=== PATIENT | female | born 1990 | race Caucasian/White ===

== ENCOUNTER 2016-09-01 23:43 | Inpatient (IN) | payer BC, OTHER ==
[~2016-09-01 23:43] MED LIST: METH2.5 IM; ULTR50TA PO
[2016-09-01 23:45] VITALS: BP 136/86; PULSE 68; RESP 16; TEMP 98; O2SAT 95
[2016-09-02] VITALS (12 sets, daily range): BP systolic 111–139; BP diastolic 63–93; PULSE 68–110; RESP 15–21; TEMP 95.9–98.2; O2SAT 95–100
[2016-09-02] MEDS ORDERED: SODIUM CHLORIDE 0.9% FLUSH 5 ML FLUSH IVF PRN
[2016-09-02 00:24] LABS: AUTOMATED NEUTROPHIL # 10.7 TH/MM3 (1.8-7.7); BASOPHIL # 0.1 TH/MM3 (0-0.2); BASOPHIL % 0.4 % (0.0-2.0); EOSINOPHIL # 0.1 TH/MM3 (0-0.4); EOSINOPHIL % 0.6 % (0.0-4.0); HEMATOCRIT 41.8 % (35.0-46.0); HEMO FLAGS DIFF FINAL; LYMPH % 28.2 % (9.0-44.0); LYMPHOCYTE # 4.7 TH/MM3 (1.0-4.8); MEAN CELL VOLUME 97.5 FL (80.0-100.0); MEAN CORPUSCULAR HEMOGLOBIN 34.1 PG (27.0-34.0); MEAN CORPUSCULAR HGB CONC 34.9 % (32.0-36.0); MONO % 6.3 % (0.0-8.0); NEUT % 64.5 % (16.0-70.0); PLATELET COUNT 256 TH/MM3 (150-450); RED BLOOD COUNT 4.28 MIL/MM3 (4.00-5.30); RED CELL DISTRIBUTION WIDTH 13.5 % (11.6-17.2); WHITE BLOOD COUNT 16.6 TH/MM3 (4.0-11.0)
[2016-09-02 00:38] LABS: ALKALINE PHOSPHATASE 51 U/L (45-117); TOTAL BILIRUBIN ADULT 0.2 MG/DL (0.2-1.0)
--- NOTE | 2016-09-02 00:41 | PD ---
HPI Chief Complaint: OD/ Ingestion Time Seen by Provider: 23:55 Travel History International Travel<30 days: No Contact w/Intl Traveler<30days: No Traveled to known affect area: No History of Present Illness HPI This is a 25-year-old female who presents to the emergency department having had an intentional overdose of Vicodin. Patient had a 90 tablets bottle of Vicodin and it's unclear how much she took that her friends found her sleepy with a bottle of pills in her hand. The patient reports that she took these tablets to try to kill her self. She's been going through a hard breakup and she's been very emotional. Her friends report that she has done this in the past. She also reports that she drank a lot of alcohol this evening. PFSH Past Medical History Arthritis: Yes (RA) Chemotherapy: Yes Diminished Hearing: No ?: Not Past Surgical History Surgical History: No Previous Surgery Social History Alcohol Use: Yes Tobacco Use: Yes (1PPD) Substance Use: Yes (DRINKS 6-7 BEERS ON WEEKENDS) Allergies-Medications (Allergen,Severity, Reaction): Coded Allergies: Amoxicillin (Verified Allergy, Severe, Rash, 02/17/16) Reported Meds & Prescriptions Reported Meds & Active Scripts Active Reported Hydrocodone-Acetaminophen 5-325 mg Tab 1 Tab PO Q4H PRN Methotrexate 2.5 Mg Tab 2.5 Mg PO Q7D Review of Systems Except as stated in HPI: all other systems reviewed are Neg Physical Exam Narrative GENERAL: Tearful, somnolent but awakens to answer questions. SKIN: Warm and dry. HEAD: Atraumatic. Normocephalic. EYES: Pupils are pinpoint, equal and reactive. No injection or drainage. ENT: Moist mucous membranes NECK: Trachea midline. CARDIOVASCULAR: Regular rate and rhythm. No murmur appreciated. RESPIRATORY: Clear to auscultation. Breath sounds equal bilaterally. GASTROINTESTINAL: Abdomen soft, non-tender, nondistended. MUSCULOSKELETAL: No obvious deformities. NEUROLOGICAL: Awake and alert. No obvious cranial nerve deficits. Moving all extremities. PSYCHIATRIC: Appropriate mood and affect; insight and judgment normal. Data Data Last Documented VS Vital Signs Date Time Temp Pulse Resp B/P Pulse Ox O2 Delivery O2 Flow Rate FiO2 09/02/16 02:23 80 16 128/63 97 09/01/16 23:45 98.0 Room Air Orders Complete Blood Count With Diff (3/12/17 23:55) Comprehensive Metabolic Panel (09/01/16 23:55) Urinalysis - C+S If Indicated (09/01/16 23:55) Iv Access Insert/Monitor (09/01/16 23:55) Ecg Monitoring (09/01/16 23:55) Oximetry (09/01/16 23:55) Sodium Chloride 0.9% Flush (Ns Flush) (09/02/16 00:00) Drug Screen, Random Urine (09/01/16 23:55) Alcohol (Ethanol) (09/01/16 23:55) Salicylates (Aspirin) (09/01/16 23:55) Tylenol (Acetaminophen) (09/01/16 23:55) Ed Urine Pregnancytest Poc (09/01/16 23:55) Electrocardiogram (09/01/16 ) Acetylcysteine 20% Liq (Mucomyst 20% Liq (09/02/16 01:15) Lorazepam Inj (Ativan Inj) (09/02/16 01:15) Tylenol (Acetaminophen) (09/02/16 05:08) Acetylcysteine Inj (Acetadote Inj) (09/02/16 06:00) Acetylcysteine Inj (Acetadote Inj) (09/02/16 06:00) Acetylcysteine Inj (Acetadote Inj) (09/02/16 06:00) Prothrombin Time / Inr (Pt) (09/02/16 05:51) Act Partial Throm Time (Ptt) (09/02/16 05:51) Salicylates (Aspirin) (09/02/16 06:04) Labs Laboratory Tests Test 09/02/16 09/02/16 09/02/16 00:02 00:40 05:20 White Blood Count 16.6 TH/MM3 Red Blood Count 4.28 MIL/MM3 Hemoglobin 14.6 GM/DL Hematocrit 41.8 % Mean Corpuscular Volume 97.5 FL Mean Corpuscular Hemoglobin 34.1 PG Mean Corpuscular Hemoglobin 34.9 % Concent Red Cell Distribution Width 13.5 % Platelet Count 256 TH/MM3 Mean Platelet Volume 8.7 FL Neutrophils (%) (Auto) 64.5 % Lymphocytes (%) (Auto) 28.2 % Monocytes (%) (Auto) 6.3 % Eosinophils (%) (Auto) 0.6 % Basophils (%) (Auto) 0.4 % Neutrophils # (Auto) 10.7 TH/MM3 Lymphocytes # (Auto) 4.7 TH/MM3 Monocytes # (Auto) 1.0 TH/MM3 Eosinophils # (Auto) 0.1 TH/MM3 Basophils # (Auto) 0.1 TH/MM3 CBC Comment DIFF FINAL Differential Comment Sodium Level 144 MEQ/L Potassium Level 4.0 MEQ/L Chloride Level 110 MEQ/L Carbon Dioxide Level 23.8 MEQ/L Anion Gap 10 MEQ/L Blood Urea Nitrogen 8 MG/DL Creatinine 0.74 MG/DL Estimat Glomerular Filtration 96 ML/MIN Rate Random Glucose 140 MG/DL Calcium Level 8.1 MG/DL Total Bilirubin 0.2 MG/DL Aspartate Amino Transf 31 U/L (AST/SGOT) Alanine Aminotransferase 41 U/L (ALT/SGPT) Alkaline Phosphatase 51 U/L Total Protein 7.2 GM/DL Albumin 4.2 GM/DL Salicylates Level 4.0 MG/DL Acetaminophen Level 145.8 MCG/ML 116.7 MCG/ML Ethyl Alcohol Level 279 MG/DL Urine Color LIGHT-YELLOW Urine Turbidity HAZY Urine pH 5.0 Urine Specific [place] 1.008 Urine Protein NEG mg/dL Urine Glucose (UA) NEG mg/dL Urine Ketones NEG mg/dL Urine Occult Blood NEG Urine Nitrite NEG Urine Bilirubin NEG Urine Urobilinogen LESS THAN 2.0 MG/DL Urine Leukocyte Esterase SMALL Urine RBC 3 /hpf Urine WBC 7 /hpf Urine Squamous Epithelial 24 /hpf Cells Urine Amorphous Sediment RARE Urine Bacteria OCC /hpf Urine Hyaline Casts 4 /lpf Urine Mucus FEW /lpf Microscopic Urinalysis Comment CULT NOT INDICATED Urine Opiates Screen POS Urine Barbiturates Screen NEG Urine Amphetamines Screen NEG Urine Benzodiazepines Screen NEG Urine Cocaine Screen NEG Urine Cannabinoids Screen POS MDM Medical Decision Making Medical Screen Exam Complete: Yes Emergency Medical Condition: Yes Interpretation(s) Afebrile, no tachycardia, normotensive Leukocytosis Electrolytes within normal Some white blood cells in the urine but large amount of squamous epithelial cells Alcohol is 279 Acetaminophen is 145 initially and then 116@8 hours Drug screen is positive for opiates and cannabinoid Differential Diagnosis Opiate overdose, acetaminophen overdose, electrolyte abnormality, arrhythmia, alcohol intoxication Narrative Course This is a 25-year-old female who presents to the emergency Department having overdosed on Lortab. She was placed on a monitor and an IV was established. Labs are obtained which demonstrate no acetaminophen of 145. Alcohol level was 279. Patient was somewhat agitated so she was given Ativan. She was placed under a [place] act. Patient's ingestion was around 10 PM. I rechecked her acetaminophen 4 hours after her initial level and it was 116 which is clearly in the treatment range. She was started on N-acetylcysteine. She will be admitted for continued close management. Critical Care Narrative Aggregate critical care time was 40 minutes. Time to perform other separately billable procedures was not included in the critical care time. My time did not include minutes spent treating any other patients simultaneously or on activities that did not directly contribute to the patient's treatment. The services I provided to this patient were to treat and/or prevent clinically significant deterioration that could result in: disability, I provided critical care services requiring my management, as noted below: Chart data review, documentation time, medication orders and management, vital sign assessments/reviewing monitor data, ordering and reviewing lab tests, ordering and interpreting/reviewing x-rays and diagnostic studies, care of the patient and discussion of the patient with the admitting physicians. S Diagnosis Primary Impression: Acetaminophen overdose Qualified Code: T39.1X2A - Acetaminophen overdose, intentional self-harm, initial encounter Admitting Information Admitting Physician Requests: Admit Randi Da Silva MD Sep 02, 2016 00:41
[2016-09-02 00:43] LABS: ACETAMINOPHEN 145.8 MCG/ML (10.0-30.0); ALT (GPT) 41 U/L (10-53); ANION GAP 10 MEQ/L (5-15); AST (GOT) 31 U/L (15-37); BICARBONATE 23.8 MEQ/L (21.0-32.0); BLOOD UREA NITROGEN 8 MG/DL (7-18); CHLORIDE 110 MEQ/L (98-107); GLOMERULAR FILTRATION RATE 96 ML/MIN (>89); SODIUM (NA) 144 MEQ/L (136-145)
[2016-09-02 00:51] LABS: BACTERIA, URINE OCC /hpf; BLOOD, URINE NEG (NEG); COMMENT (UR) CULT NOT INDICATED; CULTURE IF INDICATED CULT NOT INDICATED; GLUCOSE,URINE NEG (NEG); HYALINE CAST, URINE 4 /lpf (RARE); KETONE, URINE NEG (NEG); MUCUS URINE FEW /lpf (OCC); NITRITE,URINE NEG (NEG); SQUAMOUS EPITHELIAL CELL URINE 24 /hpf (0-5); URINE COLOR LIGHT-YELLOW (YELLW/STRAW)
[2016-09-02 00:56] LABS: AMPHETAMINE, URINE NEG (NEG); BARBITURATES, URINE NEG (NEG); COCAINE, URINE NEG (NEG)
[2016-09-02] MEDS ORDERED: ACETYLCYSTEINE 20% 6,000 MG/30 ML ORAL SOLN VIAL PO ONE (01:15)
[2016-09-02] MEDS ORDERED: LORazepam 2 MG/ML VIAL IV PUSH ONE (01:15)
[2016-09-02] MEDS ORDERED: HYDR-3516 PO (02:59)
[2016-09-02] MEDS ORDERED: METH2.5T PO (02:59)
[2016-09-02] MEDS ORDERED: DEXTROSE 5% IV ONE ×6 (06:00)
[2016-09-02] MEDS ORDERED: WATE IV ONE ×4 (06:00)
[2016-09-02] MEDS ORDERED: WATER IV ONE ×2 (06:00)
[2016-09-02] MEDS ORDERED: ACETYLCYSTEINE IV ONE ×6 (06:00)
[2016-09-02] MEDS ORDERED: NALOXONE HCL 0.4 MG/ML AMP IV PRN (06:30)
[2016-09-02] MEDS: SODIUM CHLOR 0.9% 1000 ML INJ 1,000 ML IV SCH ×2 (06:30→08:43)
[2016-09-02] MEDS ORDERED: MAGNESIUM HYDROXIDE SUSP 30 ML CUP PO PRN (06:30)
[2016-09-02 06:34] LABS: PROTHROMBIN TIME - PATIENT 10.5 SEC (9.8-11.6)
[2016-09-02] MEDS: ONDANSETRON HCL 4 MG/2 ML VIAL IVP PRN (08:40)
--- NOTE | 2016-09-02 10:01 | HHI.HP ---
[facility] Service [facility] Primary Care Physician No Primary Care Physician Admission Diagnosis acetaminophen overdose Diagnoses: Chief Complaint: Lortab overdose Travel History International Travel<30 Days: No Contact w/Intl Traveler <30 Da: No Traveled to Known Affected Are: No History of Present Illness 25 y/o F with hx of depression and RA who presented with overdose. Patient was stated for the past month she was overwhelmed so she wanted to harm herself. She would not go into detail. patient stated she took all her Lortabs which was about 40 tablets. She stated that she wanted to end her life. Patient stated she has depression and is on prozac that is prescribed by her Religious Healer. She state that she drinks alcohol about once every other week. Smokes marijuana every day for about 1 year. Patient stated on her mother side they have depression. This was the first attempt in suicide. Patient asking to have sprite. She stated she vomit a couple times this morning but denied any nausea now. Denied any abdominal pain. Sitter at bedside. Review of Systems Constitutional: DENIES: Diaphoretic episodes, Fatigue, Fever, Weight gain, Weight loss, Chills, Dizziness, Change in appetite, Night Sweats Endocrine: DENIES: Abnorml menstrual pattern, Heat/cold intolerance, Polydipsia , Polyuria, Polyphagia Eyes: DENIES: Blurred vision, Diplopia, Eye inflammation, Eye pain, Vision loss , Photosensitivity, Double Vision Ears, nose, mouth, throat: DENIES: Tinnitus, Hearing loss, Vertigo, Nasal discharge, Oral lesions, Throat pain, Hoarseness, Ear Pain, Running Nose, Epistaxis, Sinus Pain, Toothache, Odynophagia Respiratory: DENIES: Apneas, Cough, Snoring, Wheezing, Hemoptysis, Sputum production, Shortness of breath Cardiovascular: DENIES: Chest pain, Palpitations, Syncope, Dyspnea on Exertion , PND, Lower Extremity Edema, Orthopnea, Claudication Gastrointestinal: DENIES: Abdominal pain, Black stools, Bloody stools, Constipation, Diarrhea, Nausea, Vomiting, Difficulty Swallowing, Anorexia Genitourinary: DENIES: Abnormal vaginal bleeding, Dysmenorrhea, Dyspareunia, Sexual dysfunction, Urinary frequency, Urinary incontinence, Urgency, Hematuria , Dysuria, Nocturia, Vaginal discharge Musculoskeletal: DENIES: Joint pain, Muscle aches, Stiffness, Joint Swelling, Back pain, Neck pain Integumentary: DENIES: Abnormal pigmentation, Pruritus, Rash, Nail changes, Breast masses, Breast skin changes, Nipple discharge Hematologic/lymphatic: DENIES: Bruising, Lymphadenopathy Immunologic/allergic: DENIES: Eczema, Urticaria Neurologic: DENIES: Abnormal gait, Headache, Localized weakness, Paresthesias, Seizures, Speech Problems, Tremor, Poor Balance Psychiatric: COMPLAINS OF: Depression, Suicidal Ideation, DENIES: Anxiety, Confusion, Mood changes, Hallucinations, Agitation, Homicidal Ideation, Delusions Past Family Social History Past Medical History Depression RA Past Surgical History tonsillectomy Reported Medications Hydrocodone-Acetaminophen 5-325 mg Tab 1 Tab PO Q4H PRN Methotrexate 2.5 Mg Tab 2.5 Mg PO Q7D prozac Allergies: Coded Allergies: Amoxicillin (Verified Allergy, Severe, Rash, 02/17/16) Active Ordered Medications Current Medications IV Flush (NS Flush) 2 ml UNSCH PRN IVF FLUSH AFTER USING IV ACCESS; Start 09/02 at 00:00 Acetylcysteine (Mucomyst 20% Liq) 7,550 mg ONCE ONCE PO ; Start 09/02/16 at 01: 15; Stop 09/02/16 at 05:51; Status DC Lorazepam 1 mg 1 mg ONCE ONCE IV PUSH Last administered on 09/02/16 05:21; Start 09/02/16 at 01:15; Stop 09/02/16 at 01:16; Status DC Acetylcysteine 8100 mg/Dextrose 240.5 ml @ 200 mls/hr ONCE ONCE IV Last administered on 09/02/16 06:22; Start 09/02/16 at 06:00; Stop 09/02/16 at 07:12 ; Status DC Acetylcysteine 2700 mg/Dextrose 513.5 ml @ 125 mls/hr ONCE ONCE IV Last administered on 09/02/16 06:00; Start 09/02/16 at 06:00; Stop 09/02/16 at 10:06 ; Status DC Acetylcysteine/ Dextrose (Acetadote Inj/ D5W 1000 ml Inj) 1,027 ml @ 62.5 mls/ hr ONCE ONCE IV ; Start 09/02/16 at 06:00; Stop 09/02/16 at 22:25 Ondansetron HCl (Zofran Inj) 4 mg Q6H PRN IVP NAUSEA OR VOMITING Last administered on 09/02/16 08:40; Start 09/02/16 at 06:30 Magnesium Hydroxide (Milk Of Magnnarinder Liq) 30 ml Q12H PRN PO CONSTIPATION; Start 09/02/16 at 06:30 Naloxone HCl 0.4 mg 0.4 mg UNSCH PRN IV SEE LABEL COMMENTS; Start 09/02/16 at 06:30 Sodium Chloride (NS 1000 ml Inj) 1,000 ml @ 84 mls/hr [id number] IV Last administered on 09/02/16 08:43; Start 09/02/16 at 06:30 Family History Patient stated family is healthy. Admits her mother side of family having depression. Social History patient smokes 1PPD of tobacco. drinks alcohol every other week. smokes marijuana every day for the past year. Physical Exam Vital Signs Vital Signs Date Time Temp Pulse Resp B/P Pulse Ox O2 Delivery O2 Flow Rate FiO2 09/02/16 08:24 97.3 87 19 139/93 98 09/02/16 07:35 102 18 118/67 100 Room Air 09/02/16 06:20 90 16 111/79 98 09/02/16 02:23 80 16 128/63 97 09/02/16 00:12 16 100 09/02/16 00:07 110 18 96 09/02/16 00:04 110 18 128/76 95 09/01/16 23:45 98.0 68 16 136/86 95 Room Air Physical Exam GENERAL: This is a well-nourished, well-developed patient, in no apparent distress but is very tearful. SKIN: No rashes, ecchymoses or lesions. Cool and dry. multiple tattoos on body. HEAD: Atraumatic. Normocephalic. No temporal or scalp tenderness. EYES: Pupils equal round and reactive. Extraocular motions intact. No scleral icterus. No injection or drainage. ENT: Nose without bleeding, purulent drainage or septal hematoma. Throat without erythema, tonsillar hypertrophy or exudate. Uvula midline. Airway patent. NECK: Trachea midline. No JVD or lymphadenopathy. Supple, nontender, no meningeal signs. CARDIOVASCULAR: Regular rate and rhythm without murmurs, gallops, or rubs. RESPIRATORY: Clear to auscultation. Breath sounds equal bilaterally. No wheezes , rales, or rhonchi. GASTROINTESTINAL: Abdomen soft, non-tender, nondistended. No hepato-splenomegaly , or palpable masses. No guarding. MUSCULOSKELETAL: Extremities without clubbing, cyanosis, or edema. No joint tenderness, effusion, or edema noted. No calf tenderness. Negative Homans sign bilaterally. NEUROLOGICAL: Awake and alert. Cranial nerves II through XII intact. Motor and sensory grossly within normal limits. Five out of 5 muscle strength in all muscle groups. Normal speech. Laboratory Laboratory Tests Test 09/02/16 09/02/16 09/02/16 09/02/16 00:02 00:40 05:20 06:10 White Blood Count 16.6 Red Blood Count 4.28 Hemoglobin 14.6 Hematocrit 41.8 Mean Corpuscular Volume 97.5 Mean Corpuscular Hemoglobin 34.1 Mean Corpuscular Hemoglobin 34.9 Concent Red Cell Distribution Width 13.5 Platelet Count 256 Mean Platelet Volume 8.7 Neutrophils (%) (Auto) 64.5 Lymphocytes (%) (Auto) 28.2 Monocytes (%) (Auto) 6.3 Eosinophils (%) (Auto) 0.6 Basophils (%) (Auto) 0.4 Neutrophils # (Auto) 10.7 Lymphocytes # (Auto) 4.7 Monocytes # (Auto) 1.0 Eosinophils # (Auto) 0.1 Basophils # (Auto) 0.1 CBC Comment DIFF FINAL Differential Comment Sodium Level 144 Potassium Level 4.0 Chloride Level 110 Carbon Dioxide Level 23.8 Anion Gap 10 Blood Urea Nitrogen 8 Creatinine 0.74 Estimat Glomerular Filtration 96 Rate Random Glucose 140 Calcium Level 8.1 Total Bilirubin 0.2 Aspartate Amino Transf 31 (AST/SGOT) Alanine Aminotransferase 41 (ALT/SGPT) Alkaline Phosphatase 51 Total Protein 7.2 Albumin 4.2 Salicylates Level 4.0 3.0 Acetaminophen Level 145.8 116.7 Ethyl Alcohol Level 279 Urine Color LIGHT-YELLOW Urine Turbidity HAZY Urine pH 5.0 Urine Specific [place] 1.008 Urine Protein NEG Urine Glucose (UA) NEG Urine Ketones NEG Urine Occult Blood NEG Urine Nitrite NEG Urine Bilirubin NEG Urine Urobilinogen LESS THAN 2.0 Urine Leukocyte Esterase SMALL Urine RBC 3 Urine WBC 7 Urine Squamous Epithelial 24 Cells Urine Amorphous Sediment RARE Urine Bacteria OCC Urine Hyaline Casts 4 Urine Mucus FEW Microscopic Urinalysis Comment CULT NOT INDICATED Urine Opiates Screen POS Urine Barbiturates Screen NEG Urine Amphetamines Screen NEG Urine Benzodiazepines Screen NEG Urine Cocaine Screen NEG Urine Cannabinoids Screen POS Prothrombin Time 10.5 Prothromb Time International 1.0 Ratio Activated Partial 25.0 Thromboplast Time Result Diagram: 09/02/16 0002 09/02/16 0002 Assessment and Plan Assessment and Plan 25 y/o with Depression and RA Suicide Attempt by acetaminophen overdose -patient already on Mucomyst protocol. -Tylenol trending down. -LFTs normal will recheck tomorrow. -continue with Sitter and suicidal precautions. -pending Psychiatrist consult. Depression -patient was on Prozac given by her Religious Healer. -psych consulted. RA -meds restarted. Leukocytosis -most likely due to overdose. -no signs of infections. -continue to monitor. DVT prophylaxis -low risk none indicated. Code Status full Discussed Condition With patient Physician Certification 2 Midnight Certification Type: Admission for Inpatient Services Order for Inpatient Services The services are ordered in accordance with Medicare regulations or non- Medicare payer requirements, as applicable. In the case of services not specified as inpatient-only, they are appropriately provided as inpatient services in accordance with the 2-midnight benchmark. Estimated LOS (days): 2 2 days is the estimated time the patient will need to remain in the hospital, assuming treatment plan goals are met and no additional complications. Post-Hospital Plan: Other (specify) (inpatient pyschiatrist) Candelaria Manzo MD Sep 02, 2016 10:01
--- NOTE | 2016-09-02 14:58 | EKG ---
Date Performed: 09/02/2016 Time Performed: 00:58:48 PTAGE: 25 years EKG: Sinus rhythm NORMAL ECG Compared to prior tracing no significant change PREVIOUS TRACING : 12/15/2015 02.56 DOCTOR: Gricelda Azevedo Interpretating Date/Time 09/02/2016 14:51:34
[2016-09-02] MEDS ORDERED: PILL SPLITTER OTHER PRN (15:00)
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
[2016-09-02] MEDS: SERTRALINE HCL 50 MG TAB PO SCH (15:56)
[2016-09-03] VITALS: BP 115/70; PULSE 89; RESP 16; TEMP 98.5; O2SAT 97
[2016-09-03 04:00] VITALS: BP 114/83; PULSE 65; RESP 16; TEMP 98.1; O2SAT 100
[2016-09-03] MEDS: SODIUM CHLOR 0.9% 1000 ML INJ 1,000 ML IV SCH (05:04)
[2016-09-03 05:14] LABS: AUTOMATED NEUTROPHIL # 6.5 TH/MM3 (1.8-7.7); BASOPHIL % 0.4 % (0.0-2.0); EOSINOPHIL # 0.1 TH/MM3 (0-0.4); HEMATOCRIT 40.6 % (35.0-46.0); HEMO FLAGS DIFF FINAL; LYMPH % 23.7 % (9.0-44.0); LYMPHOCYTE # 2.4 TH/MM3 (1.0-4.8); MEAN CELL VOLUME 95.9 FL (80.0-100.0); MEAN CORPUSCULAR HEMOGLOBIN 32.5 PG (27.0-34.0); MEAN CORPUSCULAR HGB CONC 33.9 % (32.0-36.0); MONO % 9.2 % (0.0-8.0); NEUT % 65.7 % (16.0-70.0); PLATELET COUNT 199 TH/MM3 (150-450); RED BLOOD COUNT 4.23 MIL/MM3 (4.00-5.30); RED CELL DISTRIBUTION WIDTH 13.7 % (11.6-17.2)
[2016-09-03 05:26] LABS: PROTHROMBIN TIME - PATIENT 11.5 SEC (9.8-11.6)
[2016-09-03 05:45] LABS: ACETAMINOPHEN 3.6 MCG/ML (10.0-30.0); ALKALINE PHOSPHATASE 40 U/L (45-117); ALT (GPT) 35 U/L (10-53); ANION GAP 9 MEQ/L (5-15); AST (GOT) 16 U/L (15-37); BICARBONATE 26.9 MEQ/L (21.0-32.0); BLOOD UREA NITROGEN 3 MG/DL (7-18); CHLORIDE 104 MEQ/L (98-107); GLOMERULAR FILTRATION RATE 124 ML/MIN (>89); POTASSIUM 3.5 MEQ/L (3.5-5.1); SODIUM (NA) 140 MEQ/L (136-145); TOTAL BILIRUBIN ADULT 0.5 MG/DL (0.2-1.0)
[2016-09-03 06:56] LABS: BETA HCG QUANT LESS THAN 1 MIU/ML (0-5)
[2016-09-03 08:00] VITALS: BP 113/77; PULSE 67; RESP 18; TEMP 97.9; O2SAT 99
[2016-09-03] MEDS: SERTRALINE HCL 50 MG TAB PO SCH (08:10)
[2016-09-03] MEDS: ONDANSETRON HCL 4 MG/2 ML VIAL IVP PRN (08:58)
[2016-09-03 09:49] VITALS: PULSE 83
[2016-09-03] MEDS ORDERED: FAMOTIDINE 20 MG TAB PO SCH (10:00)
--- NOTE | 2016-09-03 10:07 | HHI.PR ---
Subjective Remarks f/u for depression and overdose for suicidal attempt. patient had episode of emesis in AM. She has not been taking any PO intake. Per nurse she c/o acid reflux. patient finished Mucomyst treatment. d/w nurse Objective Vitals Vital Signs Date Time Temp Pulse Resp B/P Pulse Ox O2 Delivery O2 Flow Rate FiO2 09/03/16 09:49 83 09/03/16 08:00 Room Air 09/03/16 08:00 97.9 67 18 113/77 99 09/03/16 04:00 Room Air 09/03/16 04:00 98.1 65 16 114/83 100 09/03/16 00:00 Room Air 09/03/16 00:00 98.5 89 16 115/70 97 09/02/16 22:15 68 09/02/16 20:00 Room Air 09/02/16 20:00 98.2 80 15 121/88 97 09/02/16 19:59 85 09/02/16 18:07 87 09/02/16 16:00 96.5 81 21 117/73 97 09/02/16 11:40 95.9 75 15 119/84 98 I/O 09/02/16 09/02/16 09/02/16 09/03/16 09/03/16 09/03/16 07:00 15:00 23:00 07:00 15:00 23:00 Intake Total 1489 ml 502 ml Balance 1489 ml 502 ml Intake Oral 450 ml 0 ml IV Total 1039 ml 502 ml # Voids 2 1 Result Diagram: 09/03/16 0500 09/03/16 0500 Objective Remarks GENERAL: in NAD EYES: No scleral icterus. No injection or drainage. eyes swollen from crying. NECK: Supple, trachea midline. No JVD or lymphadenopathy. CARDIOVASCULAR: Regular rate and rhythm without murmurs, gallops, or rubs. RESPIRATORY: Breath sounds equal bilaterally. No accessory muscle use. GASTROINTESTINAL: Abdomen soft, non-tender, nondistended. Medications and IVs Current Medications IV Flush (NS Flush) 2 ml UNSCH PRN IVF FLUSH AFTER USING IV ACCESS; Start 09/02 at 00:00 Acetylcysteine (Mucomyst 20% Liq) 7,550 mg ONCE ONCE PO ; Start 09/02/16 at 01: 15; Stop 09/02/16 at 05:51; Status DC Lorazepam 1 mg 1 mg ONCE ONCE IV PUSH Last administered on 09/02/16 05:21; Start 09/02/16 at 01:15; Stop 09/02/16 at 01:16; Status DC Acetylcysteine 8100 mg/Dextrose 240.5 ml @ 200 mls/hr ONCE ONCE IV Last administered on 09/02/16 06:22; Start 09/02/16 at 06:00; Stop 09/02/16 at 07:12 ; Status DC Acetylcysteine 2700 mg/Dextrose 513.5 ml @ 125 mls/hr ONCE ONCE IV Last administered on 09/02/16 06:00; Start 09/02/16 at 06:00; Stop 09/02/16 at 10:06 ; Status DC Acetylcysteine/ Dextrose (Acetadote Inj/ D5W 1000 ml Inj) 1,027 ml @ 62.5 mls/ hr ONCE ONCE IV Last administered on 09/02/16 14:53; Start 09/02/16 at 06:00 ; Stop 09/02/16 at 22:25; Status DC Ondansetron HCl (Zofran Inj) 4 mg Q6H PRN IVP NAUSEA OR VOMITING Last administered on 09/03/16 08:58; Start 09/02/16 at 06:30 Magnesium Hydroxide (Milk Of Magnesia Liq) 30 ml Q12H PRN PO CONSTIPATION; Start 09/02/16 at 06:30 Naloxone HCl 0.4 mg 0.4 mg UNSCH PRN IV SEE LABEL COMMENTS; Start 09/02/16 at 06:30 Sodium Chloride (NS 1000 ml Inj) 1,000 ml @ 84 mls/hr [id number] IV Last administered on 09/02/16 08:43; Start 09/02/16 at 06:30 Sertraline HCl (Zoloft) 25 mg DAILY PO Last administered on 09/03/16 08:10; Start 09/02/16 at 15:00 Miscellaneous (Pill Splitter) 1 ea UNSCH PRN OTHER SEE LABEL COMMENTS; Start at 15:00 A/P Assessment and Plan 25 y/o with Depression and RA Suicide Attempt by acetaminophen overdose -completed mucomyst protocol and labs WNL. -LFTs normal and stable. -continue with Sitter and suicidal precautions. -Psychiatrist stated can transfer to [facility] psych if not ready to discharge so will transfer since she cannot take PO intake and has emesis. Depression -Psych start Zoloft. -being managed by Psych RA -meds restarted. Leukocytosis -RESOLVED. -most likely due to overdose and dehydration. -no signs of infections. GERD -start zantac. DVT prophylaxis -low risk none indicated. Discharge Planning can be transfer to med psych. she continues to have emesis and cant keep PO intake. d/w patient's nurse. Candelaria Manzo MD Sep 03, 2016 10:07
--- NOTE | 2016-09-03 10:52 | HHI.PYPN ---
Subjective Remarks Patient was seen today for reevaluation, she was found in her room, still depressed, she states she feels hopeless and helpless, "I don't know how to continue my life", she endorses SI, no plan, "is better to be than this", however she does not have an active plan and contracted for safety in the hospital. She has been compliant with medication, no significant side effects. Review of Systems Other No significant changes since 09/02/2016 Objective Alert: Yes [place]: Person, Place, Date, Situation Mood: Depressed Affect: Restricted Memory Intact: Immediate, Recent, Remote Hallucinations: Other (none) Delusions: No Delusion Type: Other (none ) Suicidal: Ideation (no active plan ) Homicidal: Ideation (denies ) Insight/Judgement Poor Labs Test 09/03/16 05:00 White Blood Count 10.0 TH/MM3 Red Blood Count 4.23 MIL/MM3 Hemoglobin 13.8 GM/DL Hematocrit 40.6 % Mean Corpuscular Volume 95.9 FL Mean Corpuscular Hemoglobin 32.5 PG Mean Corpuscular Hemoglobin 33.9 % Concent Red Cell Distribution Width 13.7 % Platelet Count 199 TH/MM3 Mean Platelet Volume 8.6 FL Neutrophils (%) (Auto) 65.7 % Lymphocytes (%) (Auto) 23.7 % Monocytes (%) (Auto) 9.2 % Eosinophils (%) (Auto) 1.0 % Basophils (%) (Auto) 0.4 % Neutrophils # (Auto) 6.5 TH/MM3 Lymphocytes # (Auto) 2.4 TH/MM3 Monocytes # (Auto) 0.9 TH/MM3 Eosinophils # (Auto) 0.1 TH/MM3 Basophils # (Auto) 0.0 TH/MM3 CBC Comment DIFF FINAL Differential Comment Prothrombin Time 11.5 SEC Prothromb Time International 1.0 RATIO Ratio Sodium Level 140 MEQ/L Potassium Level 3.5 MEQ/L Chloride Level 104 MEQ/L Carbon Dioxide Level 26.9 MEQ/L Anion Gap 9 MEQ/L Blood Urea Nitrogen 3 MG/DL Creatinine 0.59 MG/DL Estimat Glomerular Filtration 124 ML/MIN Rate Random Glucose 99 MG/DL Calcium Level 8.5 MG/DL Total Bilirubin 0.5 MG/DL Aspartate Amino Transf 16 U/L (AST/SGOT) Alanine Aminotransferase 35 U/L (ALT/SGPT) Alkaline Phosphatase 40 U/L Total Protein 5.7 GM/DL Albumin 3.2 GM/DL Human Chorionic Gonadotropin, LESS THAN 1 Quant MIU/ML Acetaminophen Level 3.6 MCG/ML Vitals/IOs Vital Signs Date Time Temp Pulse Resp B/P Pulse Ox O2 Delivery O2 Flow Rate FiO2 09/03/16 09:49 83 09/03/16 08:00 Room Air 09/03/16 08:00 97.9 18 113/77 99 Intake and Output 09/02/16 09/02/16 09/03/16 08:00 16:00 00:00 Intake Total 1489 ml Balance 1489 ml Assessment & Plan Problem List: (1) Depressive disorder Assessment & Plan: Transfer patient to [facility]. Continue Zoloft 25 mg. Extensive supportive psychotherapy provided. ICD Code: F32.9 Assessment & Plan Estimated LOS: days Justification for Cont. Inpt. Patient is very depressed and suicidal, she has just attempted to commit suicide by overdosing with an entire cabrera of acetaminophen with the intention to . She needs psychiatric hospitalization for stabilization. Robin Rodriguez MD Sep 03, 2016 10:52
== END 2016-09-03 11:58 | DRG 918 ==
LOC: NEPC 23:43 → NEDA 09-02 06:29 → HCPC 09-02 08:16
PROVIDERS: ADMIT Family Medicine; ATTEND Family Medicine
DX: T39.1X2A Poisoning by 4-Aminophenol derivatives, intentional self-harm, initial encounter (principal); F32.9 Major depressive disorder, single episode, unspecified; Z81.8 Family history of other mental and behavioral disorders; F12.90 Cannabis use, unspecified, uncomplicated; Z72.89 Other problems related to lifestyle; M06.9 Rheumatoid arthritis, unspecified; F17.210 Nicotine dependence, cigarettes, uncomplicated; D72.829 Elevated white blood cell count, unspecified; Y90.8 Blood alcohol level of 240 mg/100 ml or more; K21.9 Gastro-esophageal reflux disease without esophagitis
CPT/HCPCS: 80053; 80307; 81001; 84702; 84703; 85025; 85610; 85730; 93005; 96374; 96375; J0132; J2060; J2405; J7030; J7060; J7070

== ENCOUNTER 2016-09-02 16:38 | Inpatient (IN) | payer BC ==
[~2016-09-02] VITALS: Ht 160 cm; Wt 56.1 kg
[~2016-09-02 16:38] MED LIST changes: +HYDR-3516 PO; +METH2.5T PO
[2016-09-03 11:18] VITALS: BP 107/67; PULSE 80; RESP 18; TEMP 98.1; O2SAT 99
[2016-09-03] MEDS ORDERED: LORazepam 1 MG TAB PO PRN (12:45)
[2016-09-03] MEDS ORDERED: LORazepam 2 MG TAB PO PRN (12:45)
[2016-09-03] MEDS ORDERED: HALOPERIDOL LACTATE 5 MG/ML AMP IM PRN (12:45)
[2016-09-03] MEDS ORDERED: FLUMAZENIL 0.5 MG/5 ML VIAL IV PUSH PRN (12:45)
[2016-09-03] MEDS ORDERED: LORazepam 2 MG/ML VIAL IV PUSH PRN ×4 (12:45)
[2016-09-03] MEDS ORDERED: PILL SPLITTER OTHER PRN (14:00)
[2016-09-03] MEDS: SERTRALINE HCL 50 MG TAB PO SCH (14:00)
[2016-09-03] MEDS ORDERED: ONDANSETRON HCL 4 MG/2 ML VIAL IV PUSH PRN (17:00)
[2016-09-03] MEDS: SODIUM CHLOR 0.9% 1000 ML INJ 1,000 ML IV SCH (18:09)
[2016-09-03 19:26] VITALS: BP 109/66; PULSE 83; RESP 16; TEMP 98.2; O2SAT 99
[2016-09-03] MEDS: FAMOTIDINE 20 MG TAB PO SCH (21:00)
[2016-09-03] MEDS: REMOVE OLD NICODERM (NICOTINE) PATCH TD SCH (21:30)
[2016-09-03] MEDS: NICOTINE 21 MG/24 HR PATCH TD SCH (21:30)
[2016-09-03] MEDS ORDERED: MAGNESIUM HYDROXIDE SUSP 30 ML CUP PO PRN (22:15)
[2016-09-03] MEDS ORDERED: ALUMINUM/MAGNESIUM/SIMETH 30 ML CUP PO PRN (22:15)
[2016-09-03] MEDS ORDERED: LORazepam 2 MG/ML VIAL IM PRN (22:15)
[2016-09-04] MEDS: LORazepam 1 MG TAB PO PRN ×2 (03:49→22:12)
[2016-09-04] MEDS: SODIUM CHLOR 0.9% 1000 ML INJ 1,000 ML IV SCH (05:26)
[2016-09-04 05:59] VITALS: BP 110/73; PULSE 86; RESP 16; TEMP 98; O2SAT 96
[2016-09-04 08:06] LABS: ANION GAP 10 MEQ/L (5-15); BICARBONATE 24.1 MEQ/L (21.0-32.0); BLOOD UREA NITROGEN 5 MG/DL (7-18); CHLORIDE 108 MEQ/L (98-107); GLOMERULAR FILTRATION RATE 138 ML/MIN (>89); POTASSIUM 3.5 MEQ/L (3.5-5.1); SODIUM (NA) 142 MEQ/L (136-145)
[2016-09-04 08:09] LABS: HDL CHOLESTEROL 67.3 MG/DL (40.0-60.0); LDL CHOLESTEROL 51 MG/DL (0-99)
[2016-09-04] MEDS: REMOVE OLD NICODERM (NICOTINE) PATCH TD SCH (09:00)
[2016-09-04] MEDS: FAMOTIDINE 20 MG TAB PO SCH ×2 (09:05→21:00)
[2016-09-04] MEDS: NICOTINE 21 MG/24 HR PATCH TD SCH (09:06)
[2016-09-04] MEDS: SERTRALINE HCL 50 MG TAB PO SCH (09:06)
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
--- NOTE | 2016-09-04 11:46 | PD.CONS ---
[facility] Reason for Consult medical management Primary Care Physician No Primary Care Physician Diagnoses: History of Present Illness 25 y/o F with hx of RA and depression who presented with suicidal attempt from overdose with Lortab. Patient was treated with mucomyst and labs were normal. Patient could not take PO intake so was transfer to med/psych. Today patient was found walking the hallway. She stated she is tolerating PO intake and denied any N/V. No acute events since last seen. Review of Systems Constitutional: DENIES: Diaphoretic episodes, Fatigue, Fever, Weight gain, Weight loss, Chills, Dizziness, Change in appetite, Night Sweats Endocrine: DENIES: Abnorml menstrual pattern, Heat/cold intolerance, Polydipsia , Polyuria, Polyphagia Eyes: DENIES: Blurred vision, Diplopia, Eye inflammation, Eye pain, Vision loss , Photosensitivity, Double Vision Ears, nose, mouth, throat: DENIES: Tinnitus, Hearing loss, Vertigo, Nasal discharge, Oral lesions, Throat pain, Hoarseness, Ear Pain, Running Nose, Epistaxis, Sinus Pain, Toothache, Odynophagia Respiratory: DENIES: Apneas, Cough, Snoring, Wheezing, Hemoptysis, Sputum production, Shortness of breath Cardiovascular: DENIES: Chest pain, Palpitations, Syncope, Dyspnea on Exertion , PND, Lower Extremity Edema, Orthopnea, Claudication Gastrointestinal: DENIES: Abdominal pain, Black stools, Bloody stools, Constipation, Diarrhea, Nausea, Vomiting, Difficulty Swallowing, Anorexia Genitourinary: DENIES: Abnormal vaginal bleeding, Dysmenorrhea, Dyspareunia, Sexual dysfunction, Urinary frequency, Urinary incontinence, Urgency, Hematuria , Dysuria, Nocturia, Vaginal discharge Musculoskeletal: DENIES: Joint pain, Muscle aches, Stiffness, Joint Swelling, Back pain, Neck pain Integumentary: DENIES: Abnormal pigmentation, Pruritus, Rash, Nail changes, Breast masses, Breast skin changes, Nipple discharge Hematologic/lymphatic: DENIES: Bruising, Lymphadenopathy Immunologic/allergic: DENIES: Eczema, Urticaria Psychiatric: COMPLAINS OF: Depression, Suicidal Ideation, DENIES: Anxiety, Confusion, Mood changes, Hallucinations, Agitation, Homicidal Ideation, Delusions Past Family Social History Allergies: Coded Allergies: Amoxicillin (Verified Allergy, Severe, Rash, 8/27/16) Past Medical History RA depression Past Surgical History tonsillectomy Reported Medications Reported Meds & Active Scripts Active Reported Hydrocodone-Acetaminophen 5-325 mg Tab 1 Tab PO Q4H PRN Methotrexate 2.5 Mg Tab 2.5 Mg PO Q7D Active Ordered Medications Current Medications Lorazepam (Ativan) 1 mg Q4H PRN PO CIWA 8-10; Start 09/03/16 at 12:45 Lorazepam (Ativan Inj) 1 mg Q4H PRN IV PUSH CIWA 8-10; Start 09/03/16 at 12:45 Lorazepam (Ativan) 2 mg Q2H PRN PO CIWA 11-14; Start 09/03/16 at 12:45 Lorazepam (Ativan Inj) 2 mg Q2H PRN IV PUSH CIWA 11-14; Start 09/03/16 at 12:45 Lorazepam (Ativan Inj) 2 mg Q1H PRN IV PUSH CIWA 15-20; Start 09/03/16 at 12:45 Lorazepam (Ativan Inj) 2 mg Q15M PRN IV PUSH CIWA > 20; Start 09/03/16 at 12:45 Haloperidol Lactate (Haldol Inj) 2 mg Q15M PRN IM SEE LABEL COMMENTS Last administered on 09/03/16 18:26; Start 09/03/16 at 12:45 Flumazenil (Romazicon Inj) 0.2 mg Q1M PRN IV PUSH SEE LABEL COMMENTS; Start at 12:45 Sertraline HCl (Zoloft) 25 mg DAILY PO Last administered on 09/04/16 09:06; Start 09/03/16 at 14:00; Stop 09/04/16 at 10:55; Status DC Miscellaneous 1 ea 1 ea UNSCH PRN OTHER SEE LABEL COMMENTS; Start 09/03/16 at 14:00 Sodium Chloride (NS 1000 ml Inj) 1,000 ml @ 84 mls/hr [id number] IV Last administered on 09/04/16 05:26; Start 09/03/16 at 18:00 Ondansetron HCl (Zofran Inj) 4 mg Q6H PRN IV PUSH NAUSEA OR VOMITING; Start at 17:00 Famotidine (Pepcid) 20 mg BID PO Last administered on 09/04/16 09:05; Start at 21:00 Nicotine (Habitrol 21 Mg Patch.24 Hr) 1 patch DAILY TD Last administered on 09:06; Start 09/03/16 at 21:30 Miscellaneous Information 1 DAILY TD Last administered on 09/04/16 09:00; Start 09/03/16 at 21:30 Lorazepam (Ativan) 1 mg Q6H PRN PO MODERATE TO SEVERE ANXIETY Last administered on 09/04/16 03:49; Start 09/03/16 at 22:15 Lorazepam (Ativan Inj) 1 mg Q6H PRN IM MODERATE TO SEVERE ANXIETY; Start at 22:15 Magnesium Hydroxide (Milk Of Magnesia Liq) 30 ml DAILY PRN PO CONSTIPATION; Start 09/03/16 at 22:15 Al Hydrox/Mg Hydrox/Simethicone (Mag-Al Plus Susp Liq) 30 ml Q6H PRN PO DYSPEPSIA; Start 09/03/16 at 22:15 Sertraline HCl (Zoloft) 50 mg DAILY PO ; Start 09/05/16 at 09:00; Status UNV Family History Patient stated family is healthy. Admits her mother side of family having depression. Social History patient smokes 1PPD of tobacco. drinks alcohol every other week. smokes marijuana every day for the past year. Physical Exam Vital Signs Vital Signs Date Time Temp Pulse Resp B/P Pulse Ox O2 Delivery O2 Flow Rate FiO2 09/04/16 05:59 98.0 86 16 110/73 96 09/03/16 19:26 98.2 83 16 109/66 99 Physical Exam GENERAL: This is a well-nourished, well-developed patient, in no apparent distress. SKIN: No rashes, ecchymoses or lesions. Cool and dry. HEAD: Atraumatic. Normocephalic. No temporal or scalp tenderness. EYES: Pupils equal round and reactive. Extraocular motions intact. No scleral icterus. No injection or drainage. ENT: Nose without bleeding, purulent drainage or septal hematoma. Throat without erythema, tonsillar hypertrophy or exudate. Uvula midline. Airway patent. NECK: Trachea midline. No JVD or lymphadenopathy. Supple, nontender, no meningeal signs. CARDIOVASCULAR: Regular rate and rhythm without murmurs, gallops, or rubs. RESPIRATORY: Clear to auscultation. Breath sounds equal bilaterally. No wheezes , rales, or rhonchi. GASTROINTESTINAL: Abdomen soft, non-tender, nondistended. No hepato-splenomegaly , or palpable masses. No guarding. MUSCULOSKELETAL: Extremities without clubbing, cyanosis, or edema. No joint tenderness, effusion, or edema noted. No calf tenderness. Negative Homans sign bilaterally. NEUROLOGICAL: Awake and alert. Cranial nerves II through XII intact. Motor and sensory grossly within normal limits. Five out of 5 muscle strength in all muscle groups. Normal speech. Laboratory Laboratory Tests Test 09/04/16 06:32 Sodium Level 142 Potassium Level 3.5 Chloride Level 108 Carbon Dioxide Level 24.1 Anion Gap 10 Blood Urea Nitrogen 5 Creatinine 0.54 Estimat Glomerular Filtration 138 Rate Random Glucose 90 Calcium Level 8.2 Triglycerides Level 76 Cholesterol Level 133 LDL Cholesterol 51 HDL Cholesterol 67.3 Cholesterol/HDL Ratio 1.97 Result Diagram: 09/04/16 0632 Assessment and Plan Assessment and Plan 25 y/o with Depression and RA Suicide Attempt by acetaminophen overdose -s/p Mucomyst treatment. -doing well in terms of overdose. -tolerating PO intake. -Psychiatrist ff. Depression -on Zoloft. -Psychiatrist ff. RA -meds restarted. DVT prophylaxis -low risk none indicated. Code Status full Discussed Condition With patient medical cleared. Candelaria Manzo MD Sep 04, 2016 11:46
[2016-09-04 16:25] LABS: HEMOGLOBIN A1a 0.8 %; HEMOGLOBIN A1b 1.5 %; HEMOGLOBIN Ao 86.1 %; HEMOGLOBIN LA1C 2.1 %; HEMOGLOBIN P3 3.5 %
[2016-09-04 18:00] VITALS: BP 124/83; PULSE 99; RESP 16; TEMP 97.8; O2SAT 99
[2016-09-05 05:57] VITALS: BP 108/65; PULSE 70; RESP 18; TEMP 97.4; O2SAT 98
[2016-09-05] MEDS: REMOVE OLD NICODERM (NICOTINE) PATCH TD SCH (09:00)
[2016-09-05] MEDS: FAMOTIDINE 20 MG TAB PO SCH ×2 (09:00→21:00)
[2016-09-05] MEDS ORDERED: SERTRALINE HCL 50 MG TAB PO SCH (09:00)
[2016-09-05] MEDS: NICOTINE 21 MG/24 HR PATCH TD SCH (09:04)
--- NOTE | 2016-09-05 09:04 | HHI.PR ---
Subjective Remarks Follow-up visit depression, RA, OD with Lortab, cough. Patient seen today. Complaints of cough x 2 days, congestion, nasal drip. Hx 1PPD smoking. States she is not expectorating anything, denies fevers, denies chills. Denies SOB/ dyspnea. Denies chest pain, palpitations, headache, dizziness. Denies nausea, vomiting, diarrhea. Objective Vitals Vital Signs Date Time Temp Pulse Resp B/P Pulse Ox O2 Delivery O2 Flow Rate FiO2 09/05/16 05:57 97.4 70 18 108/65 98 09/04/16 18:00 97.8 99 16 124/83 99 I/O 09/04/16 09/04/16 09/04/16 09/05/16 09/05/16 09/05/16 07:00 15:00 23:00 07:00 15:00 23:00 Intake Total 1470 ml 1440 ml 960 ml 0 ml Output Total 0 ml Balance 1470 ml 1440 ml 960 ml 0 ml Intake Oral 840 ml 1440 ml 960 ml 0 ml IV Total 630 ml Output Stool Total 0 ml # Voids 4 3 2 4 # Bowel Movements 0 1 Result Diagram: 09/04/16 0632 Imaging Last Impressions Chest X-Ray 09/05/16 0000 Signed Impressions: Service Date/Time: August 09:16 - CONCLUSION: No acute disease. Jayson Sims MD Objective Remarks GENERAL: This is a well-nourished, well-developed patient, in no apparent distress. HEENT: Normocephalic. Pupils equal round and reactive. Nose without bleeding. Airway patent. NECK: Trachea midline. No JVD. Supple. CARDIOVASCULAR: Regular rate and rhythm without murmurs, gallops, or rubs. RESPIRATORY: Coarse bilateral breath sounds. No wheezing. GASTROINTESTINAL: Abdomen soft, non-tender, nondistended. Bowel Sounds normoactive x4. MUSCULOSKELETAL: Extremities without clubbing, cyanosis, bilateral lower extremity trace edema. NEUROLOGICAL: Awake and alert. Oriented x 3. No focal neuro deficit. JEAN. Normal speech. A/P Problem List: (1) Borderline personality disorder ICD Code: F60.3 Status: Acute (2) Acetaminophen overdose ICD Code: T39.1X1A Status: Acute (3) Major depressive disorder ICD Code: F32.9 Status: Acute (4) Bronchitis due to tobacco use ICD Code: J41.0 Status: Acute (5) Rheumatoid arthritis ICD Code: M06.9 Status: Acute (6) Tobacco abuse ICD Code: Z72.0 Status: Acute Assessment and Plan Patient is a 25-year-old white female with primary medical history of rheumatoid arthritis, depression who came to the ED for suicidal attempt from overdose with Lortab. Patient was treated with Mucomyst and labs reviewed were normal. She is now admitted inpatient medical psychiatry unit for further evaluation. Consulted for medical management. Suicide attempt by acetaminophen overdose, depression - Status post Mucomyst treatment - On Zoloft - Managed by psychiatry team Cough - Chest x-ray showed no acute disease - Current smoker 1 pack per day. Counseled. Nicotine patch in place. - Zyrtec at night - DuoNeb's daily - Guaifenesin when necessary RA - On methotrexate every 7 days - Monitor for flareups. Tobacco abuse - Current smoker 1 pack per day. Patient is counseled. - Nicotine patch DVT prop ambulatory Discuss with patient, nursing Written by Laly Desai, on behalf of Dr. Bradley on 09/05/16 at 11:20. Attending Statement All or portions of this note were transcribed by matthew Desai. I, Dr. Borsi Herrera personally performed the history, physical exam, and medical decision making; and confirmed the accuracy of the information in the transcribed note. Authenticated by Dr. Boris Herrera on 09/06/16 at 10:50. Problem Qualifiers (1) Major depressive disorder: Laly Dodd Sep 05, 2016 09:03 Boris Pritchard MD Sep 06, 2016 10:50
[2016-09-05] MEDS ORDERED: RESP: ALBUTEROL 2.5 MG/IPRATROPIUM 0.5 MG NEB (PRN) NEB (09:15)
--- NOTE | 2016-09-05 09:36 | RADRPT ---
EXAM DATE/TIME: 09/05/2016 09:16 [place] COMPARISON: No previous studies available for comparison. INDICATIONS : Congestion, short of breath MEDICAL HISTORY : None. SURGICAL HISTORY : None. ENCOUNTER: Initial ACUITY: 1 day PAIN SCORE: 0/10 LOCATION: Bilateral chest FINDINGS: A single view of the chest demonstrates the lungs to be symmetrically aerated without evidence of mas s, infiltrate or effusion. The cardiomediastinal contours are unremarkable. Osseous structures are intact. CONCLUSION: No acute disease. Jayson Sims MD on September 05, 2016 at 9:30 Board Certified Radiologist. This report was verified electronically.
--- NOTE | 2016-09-05 10:56 | HHI.PYPN ---
Subjective Remarks Patient seen today for psychiatric reevaluation yearly in the morning, she was found awake in her bed, more participative and communicative that yesterday, reports depression and sadness, having difficulty with her guiltiness, but improved since she arrived in the hospital. Patient is still having frequent thoughts of suicidality, but she doesn't have any plan and endorses that she doesn't want to "but, is difficult to avoid thinking about overdosing and ended all". Patient has been fully compliant with medications, she has been described as calm, cooperative and pleasant patient, no problematic and very easy to deal with in the unit. She is fully oriented 3, no agitation or aggressive behavior reported. Objective Alert: Yes [place]: Person, Place, Date, Situation Mood: Depressed Affect: Restricted Memory Intact: Immediate, Recent, Remote Hallucinations: Other (none) Delusions: No Delusion Type: Other (no present) Suicidal: Ideation (patient has suicidal thoughts, no plan) Homicidal: Ideation (she denies) Insight/Judgement fair Vitals/IOs Vital Signs Date Time Temp Pulse Resp B/P Pulse Ox O2 Delivery O2 Flow Rate FiO2 09/05/16 05:57 97.4 70 18 108/65 98 Intake and Output 09/04/16 09/04/16 09/05/16 08:00 16:00 00:00 Intake Total 1470 ml 1440 ml 960 ml Balance 1470 ml 1440 ml 960 ml Assessment & Plan Problem List: (1) Depressive disorder ICD Code: F32.9 (2) Major depressive disorder Assessment & Plan: Patient today shows improvement in her depression, her mood and affect are brighter than yesterday, reports low energy, guiltiness, decreased concentration, suicidal ideation still present,but no active plan. The Patient shows motivation to live, to get better, continue with her life and followed the psychiatric recommendations. Patient will continue her psychiatric hospitalization for stabilization and safety. I estimated the patient can be discharged safely early next week. Extensive psycho education, support, motivation provided. nephrology social worker intervention to a start the coordination of a safe discharge plan. ICD Code: F32.9 (3) Borderline personality disorder ICD Code: F60.3 Assessment & Plan Estimated LOS: days Justification for Cont. Inpt. Patient shows pronounced symptomatology of depression and suicidal ideation, she needs psychiatric hospitalization for stabilization and safety. Problem Qualifiers (1) Major depressive disorder: Robin Rodriguez MD Sep 05, 2016 10:56
[2016-09-05] MEDS: RESP: ALBUTEROL 2.5 MG/IPRATROPIUM 0.5 MG NEB (SCH) NEB (14:19)
[2016-09-05] MEDS: guaiFENesin SOLUTION 200 MG/10 ML CUP PO PRN ×2 (15:56→21:27)
[2016-09-05 18:24] VITALS: BP 116/73; PULSE 84; RESP 18; TEMP 97.9; O2SAT 100
[2016-09-05] MEDS ORDERED: CETIRIZINE HCL 10 MG TAB PO SCH (21:00)
[2016-09-06] MEDS: guaiFENesin SOLUTION 200 MG/10 ML CUP PO PRN ×3 (02:11→10:26)
[2016-09-06 06:11] VITALS: BP 115/76; PULSE 69; RESP 16; TEMP 97.8; O2SAT 98
[2016-09-06] MEDS: RESP: ALBUTEROL 2.5 MG/IPRATROPIUM 0.5 MG NEB (SCH) NEB (07:25)
[2016-09-06] MEDS: NICOTINE 21 MG/24 HR PATCH TD SCH (08:52)
[2016-09-06] MEDS: REMOVE OLD NICODERM (NICOTINE) PATCH TD SCH (08:54)
[2016-09-06] MEDS: FAMOTIDINE 20 MG TAB PO SCH (08:54)
[2016-09-06] MEDS ORDERED: SERTRALINE HCL 50 MG TAB PO SCH (09:00)
--- NOTE | 2016-09-06 10:12 | HHI.PR ---
Subjective Remarks No major overnight events patient denies cp/sob denies fevers/chills still coughing vital signs stable Objective Vitals Vital Signs Date Time Temp Pulse Resp B/P Pulse Ox O2 Delivery O2 Flow Rate FiO2 09/06/16 06:11 97.8 69 16 115/76 98 09/05/16 18:24 97.9 84 18 116/73 100 I/O 09/05/16 09/05/16 09/05/16 09/06/16 09/06/16 09/06/16 07:00 15:00 23:00 07:00 15:00 23:00 Intake Total 0 ml 1680 ml 960 ml Output Total 0 ml Balance 0 ml 1680 ml 960 ml Intake Oral 0 ml 1680 ml 960 ml Output Stool Total 0 ml # Voids 4 1 3 3 # Bowel Movements 0 0 0 Result Diagram: 09/04/16 0632 Imaging Last Impressions Chest X-Ray 09/05/16 0000 Signed Impressions: Service Date/Time: August 09:16 - CONCLUSION: No acute disease. Jayson Sims MD Reviewed by me. Objective Remarks GENERAL: This is a well-nourished, well-developed patient, in no apparent distress. HEENT: Normocephalic. Pupils equal round and reactive. Nose without bleeding. Airway patent. NECK: Trachea midline. No JVD. Supple. CARDIOVASCULAR: Regular rate and rhythm without murmurs, gallops, or rubs. RESPIRATORY: Coarse bilateral breath sounds. No wheezing. GASTROINTESTINAL: Abdomen soft, non-tender, nondistended. Bowel Sounds normoactive x4. MUSCULOSKELETAL: Extremities without clubbing, cyanosis, bilateral lower extremity trace edema. NEUROLOGICAL: Awake and alert. Oriented x 3. No focal neuro deficit. Normal speech. Medications and IVs Current Medications Medications (Trade) Dose Ordered Sig/[place]frey Route Start Time Stop Time Status Last Admin (Ativan) 1 mg Q4H PRN PO 09/03/16 12:45 (Ativan Inj) 1 mg Q4H PRN IV PUSH 09/03/16 12:45 (Ativan) 2 mg Q2H PRN PO 09/03/16 12:45 (Ativan Inj) 2 mg Q2H PRN IV PUSH 09/03/16 12:45 (Ativan Inj) 2 mg Q1H PRN IV PUSH 09/03/16 12:45 (Ativan Inj) 2 mg Q15M PRN IV PUSH 09/03/16 12:45 (Haldol Inj) 2 mg Q15M PRN IM 09/03/16 12:45 09/03/16 18:26 (Romazicon Inj) 0.2 mg Q1M PRN IV PUSH 09/03/16 12:45 (Pill Splitter) 1 ea UNSCH PRN OTHER 09/03/16 14:00 (Zofran Inj) 4 mg Q6H PRN IV PUSH 09/03/16 17:00 (Pepcid) 20 mg BID PO 09/03/16 21:00 09/04/16 09:05 (Habitrol 21 Mg Patch.24 Hr) 1 patch DAILY TD 09/03/16 21:30 09/06/16 08:52 Miscellaneous Information 1 DAILY TD 09/03/16 21:30 09/06/16 08:54 (Ativan) 1 mg Q6H PRN PO 09/03/16 22:15 09/04/16 22:12 (Ativan Inj) 1 mg Q6H PRN IM 09/03/16 22:15 (Milk Of Magnesia Liq) 30 ml DAILY PRN PO 09/03/16 22:15 (Mag-Al Plus Susp Liq) 30 ml Q6H PRN PO 09/03/16 22:15 (ZyrTEC) 10 mg HS PO 09/05/16 21:00 09/05/16 21:27 (Robitussin Liq) 200 mg Q4H PRN PO 09/05/16 09:15 09/06/16 10:26 (Zoloft) 100 mg DAILY PO 09/06/16 09:00 09/06/16 08:53 Urinary Catheter: No Vascular Central Line Catheter: No A/P Problem List: (1) Borderline personality disorder ICD Code: F60.3 Status: Acute (2) Acetaminophen overdose ICD Code: T39.1X1A Status: Acute (3) Major depressive disorder ICD Code: F32.9 Status: Acute (4) Bronchitis due to tobacco use ICD Code: J41.0 Status: Acute (5) Rheumatoid arthritis ICD Code: M06.9 Status: Acute (6) Tobacco abuse ICD Code: Z72.0 Status: Acute Assessment and Plan Patient is a 25-year-old white female with primary medical history of rheumatoid arthritis, depression who came to the ED for suicidal attempt from overdose with Lortab. Patient was treated with Mucomyst and labs reviewed were normal. She is now admitted inpatient medical psychiatry unit for further evaluation. Consulted for medical management. Suicide attempt by acetaminophen overdose, depression - Status post Mucomyst treatment - On Zoloft - Managed by psychiatry team Cough - Chest x-ray showed no acute disease - Current smoker 1 pack per day. Counseled. Nicotine patch in place. - Zyrtec at night - DuoNeb's daily - Guaifenesin when necessary - Flu A and B negative. RA - On methotrexate every 7 days - Monitor for flareups. - Seems stable. Tobacco abuse - Current smoker 1 pack per day. Advised smoking cessation - Nicotine patch DVT prop ambulatory Discharge Planning Patient cleared medically to be discharged. Problem Qualifiers (1) Major depressive disorder: Boris Pritchard MD Sep 06, 2016 10:12
[2016-09-06] MEDS ORDERED: ZOLO50TA PO (10:13)
[2016-09-06] MEDS ORDERED: FAMO20TA2 PO (10:13)
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
[2016-09-06] MEDS ORDERED: DEXT1SUS PO (10:55)
[2016-09-06] MEDS ORDERED: NICO21DI2 T-DERMAL (10:57)
[2016-09-06] MEDS ORDERED: CETI10 PO (10:59)
== END 2016-09-06 11:15 | disposition home or self-care (01) | DRG 918 ==
LOC: H4EA 16:38 → OBSVTOIN 16:39
PROVIDERS: ADMIT Psychiatry & Neurology Psychiatry; ATTEND Psychiatry & Neurology Psychiatry
DX: T39.1X2A Poisoning by 4-Aminophenol derivatives, intentional self-harm, initial encounter (principal); F33.2 Major depressive disorder, recurrent severe without psychotic features; F60.3 Borderline personality disorder; Z91.5 Personal history of self-harm; Y92.009 Unspecified place in unspecified non-institutional (private) residence as the place of occurrence of the external cause; F17.210 Nicotine dependence, cigarettes, uncomplicated; F12.90 Cannabis use, unspecified, uncomplicated; M06.9 Rheumatoid arthritis, unspecified; J40 Bronchitis, not specified as acute or chronic
CPT/HCPCS: 71010; 80048; 80061; 83036; 87804; 94640; 94664; J1630; J7030

== ENCOUNTER 2016-10-11 02:41 | Emergency (ER) | payer BC, OTHER ==
[~2016-10-11] VITALS: Ht 160 cm; Wt 58.0 kg
[~2016-10-11 02:41] MED LIST changes: +CETI10 PO; +DEXT1SUS PO; +FAMO20TA2 PO; -HYDR-3516 PO; -METH2.5 IM; -METH2.5T PO; +NICO21DI2 T-DERMAL; -ULTR50TA PO; +ZOLO50TA PO
[2016-10-11] MEDS ORDERED: TETANUS/DIPHTHERIA TOXOID ADULT 0.5 ML VIAL IM ONE (03:15)
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
[2016-10-11 03:16] VITALS: BP 97/55; PULSE 77; RESP 16; TEMP 98.1; O2SAT 98
[2016-10-11 03:50] LABS: AUTOMATED NEUTROPHIL # 9.7 TH/MM3 (1.8-7.7); BASOPHIL % 0.3 % (0.0-2.0); EOSINOPHIL # 0.1 TH/MM3 (0-0.4); EOSINOPHIL % 0.6 % (0.0-4.0); HEMATOCRIT 42.9 % (35.0-46.0); HEMO FLAGS DIFF FINAL; LYMPH % 25.9 % (9.0-44.0); LYMPHOCYTE # 3.7 TH/MM3 (1.0-4.8); MEAN CELL VOLUME 95.9 FL (80.0-100.0); MEAN CORPUSCULAR HEMOGLOBIN 32.8 PG (27.0-34.0); MEAN CORPUSCULAR HGB CONC 34.2 % (32.0-36.0); MONO % 5.4 % (0.0-8.0); NEUT % 67.8 % (16.0-70.0); PLATELET COUNT 198 TH/MM3 (150-450); RED BLOOD COUNT 4.47 MIL/MM3 (4.00-5.30); RED CELL DISTRIBUTION WIDTH 13.6 % (11.6-17.2); WHITE BLOOD COUNT 14.3 TH/MM3 (4.0-11.0)
[2016-10-11 03:52] LABS: AMPHETAMINE, URINE NEG (NEG); COCAINE, URINE POS (NEG)
[2016-10-11 03:56] LABS: BARBITURATES, URINE NEG (NEG)
[2016-10-11 04:08] LABS: ANION GAP 8 MEQ/L (5-15); AST (GOT) 19 U/L (15-37); BICARBONATE 22.4 MEQ/L (21.0-32.0); BLOOD UREA NITROGEN 7 MG/DL (7-18); CHLORIDE 113 MEQ/L (98-107); GLOMERULAR FILTRATION RATE 93 ML/MIN (>89); SODIUM (NA) 143 MEQ/L (136-145)
[2016-10-11 04:11] LABS: ACETAMINOPHEN LESS THAN 2.0 MCG/ML (10.0-30.0); ALKALINE PHOSPHATASE 57 U/L (45-117); ALT (GPT) 36 U/L (10-53); TOTAL BILIRUBIN ADULT 0.2 MG/DL (0.2-1.0)
[2016-10-11 10:38] VITALS: BP 124/76; TEMP 97.9
--- NOTE | 2016-10-11 10:42 | PD ---
History of Present Illness Chief Complaint: Psychiatric Symptoms Time Seen by Provider: 10:00 Travel History International Travel<30 Days: No Contact w/Intl Traveler<30days: No Known affected area: No Legal Status Legal Status: [place] Act V[place] Act Signed By: History of Present Illness: 25-year-old female Yared acted last night for making suicidal threats and engaging in inappropriate behavior. states she was markedly intoxicated last night and became so because her ex-boyfriend brought their dogs to her work but would not let her see them. At this time, she is no longer intoxicated and denies any suicidal or homicidal ideation, plan or intention. She is calm and cooperative. Her cognition is intact and she verbally contracts for safety. She acknowledges she made mistakes last night based on her consumption of alcohol and does not wish to do so again. She does have a place where she lives and she does work at the [employer]. In this physician's opinion, she does not meet criteria for [place] act her inpatient psychiatric hospitalization at this time. PFSH Past Medical History Medical History: Denies Significant Hx Arthritis: Yes (RA) Anxiety: Yes Depression: Yes Cancer: No Cardiovascular Problems: No Chemotherapy: Yes Cerebrovascular Accident: No Diminished Hearing: No Endocrine: No Gastrointestinal Disorders: No Genitourinary: No Headaches: No Immune Disorder: No Implanted Vascular Access Dvce: No Neurologic: No Psychiatric: Yes Reproductive: No Respiratory: No Immunizations Current: Yes Migraines: No Seizures: No Tetanus Vaccination: < 5 Years Influenza Vaccination: No ?: Unknown Past Surgical History Abdominal Surgery: No Cardiac Surgery: No Ear Surgery: No Endocrine Surgery: No Eye Surgery: No Genitourinary Surgery: No Gynecologic Surgery: No Neurologic Surgery: No Oral Surgery: Yes (tonsillectomy) Thoracic Surgery: No Other Surgery: Yes Psychiatric History Psychiatric History Hx Psychiatric Treatment: Depression History of Inpatient Treatment: No Guns or firearms in home: No Social History Hx Alcohol Use: Yes (socially) Hx Tobacco Use: Yes (1PPD) Hx Substance Use: No Substance Use Type: Alcohol, Marijuana Hx of Substance Use Treatment: No Allergies-Medications (Allergen,Severity, Reaction): Coded Allergies: Amoxicillin (Verified Allergy, Severe, Rash, 10/11/16) Reported Meds & Prescriptions Reported Meds & Active Scripts Active Review of Systems ROS Limitations: Clinical Condition Except as stated in HPI: all other systems reviewed are Neg Exam Exam Limitations: Clinical Condition Alert: Yes Grady: Person, Place Mood: Calm Affect: Appropriate Speech: Clear, Logical Eye Contact: Normal Memory Intact: Immediate, Recent, Remote Insight/Judgement Adequate MDM Medical Decision Making Medical Record Reviewed: Yes Assessment/Plan Patient no longer meets [place] act criteria and she certainly does not meet criteria for inpatient psychiatric hospitalization at this time. She is verbally agus for safety and she is no longer intoxicated. Her cognition is intact and she is competent to make decisions regarding her treatment. Orders Complete Blood Count With Diff (10/11/16 02:54) Comprehensive Metabolic Panel (10/11/16 02:54) Ed Urine Pregnancytest Poc (10/11/16 02:54) Psych Screen (10/11/16 02:54) Drug Screen, Random Urine (10/11/16 02:54) Alcohol (Ethanol) (10/11/16 02:54) Salicylates (Aspirin) (10/11/16 02:54) Tylenol (Acetaminophen) (10/11/16 02:54) Tetanus/Diphtheria Tox Adult (Tetanus/Di (10/11/16 03:15) ^ Sitter (10/11/16 03:27) Diet Regular Basic (10/11/16 Breakfast) Results Vital Signs Date Time Temp Pulse Resp B/P Pulse Ox O2 Delivery O2 Flow Rate FiO2 10/11/16 03:16 98.1 77 16 97/55 98 Laboratory Tests Test 10/11/16 03:10 White Blood Count 14.3 Red Blood Count 4.47 Hemoglobin 14.7 Hematocrit 42.9 Mean Corpuscular Volume 95.9 Mean Corpuscular Hemoglobin 32.8 Mean Corpuscular Hemoglobin 34.2 Concent Red Cell Distribution Width 13.6 Platelet Count 198 Mean Platelet Volume 9.1 Neutrophils (%) (Auto) 67.8 Lymphocytes (%) (Auto) 25.9 Monocytes (%) (Auto) 5.4 Eosinophils (%) (Auto) 0.6 Basophils (%) (Auto) 0.3 Neutrophils # (Auto) 9.7 Lymphocytes # (Auto) 3.7 Monocytes # (Auto) 0.8 Eosinophils # (Auto) 0.1 Basophils # (Auto) 0.0 CBC Comment DIFF FINAL Differential Comment Sodium Level 143 Potassium Level 4.0 Chloride Level 113 Carbon Dioxide Level 22.4 Anion Gap 8 Blood Urea Nitrogen 7 Creatinine 0.76 Estimat Glomerular Filtration 93 Rate Random Glucose 91 Calcium Level 8.3 Total Bilirubin 0.2 Aspartate Amino Transf 19 (AST/SGOT) Alanine Aminotransferase 36 (ALT/SGPT) Alkaline Phosphatase 57 Total Protein 7.2 Albumin 4.1 Salicylates Level 4.4 Urine Opiates Screen NEG Acetaminophen Level LESS THAN 2.0 Urine Barbiturates Screen NEG Urine Amphetamines Screen NEG Urine Benzodiazepines Screen NEG Urine Cocaine Screen POS Urine Cannabinoids Screen POS Ethyl Alcohol Level 218 Diagnosis Primary Impression: Adjustment disorder with mixed disturbance of emotions and conduct Referrals: [facility] (Out patient) Departure Forms: Tests/Procedures Patient Instructions: General Instructions Disposition: 01 DISCHARGE HOME Sidney Carter MD Oct 11, 2016 10:42
== END 2016-10-11 10:50 | disposition home or self-care (01) ==
LOC: NEPD 02:41
DX: F43.25 Adjustment disorder with mixed disturbance of emotions and conduct (principal); F32.9 Major depressive disorder, single episode, unspecified; R45.851 Suicidal ideations; F41.9 Anxiety disorder, unspecified; F17.200 Nicotine dependence, unspecified, uncomplicated
CPT/HCPCS: 12001; 80053; 80307; 84703; 85025